=== PATIENT | female | born 1930 | race Caucasian/White ===

== ENCOUNTER 2016-10-13 08:00 | Outpatient (CLI) | payer MEDICARE, MEDICAID | END 2016-10-13 23:59 | DX: Z79.899 Other long term (current) drug therapy (principal); E03.9 Hypothyroidism, unspecified ==

== ENCOUNTER 2016-10-22 | Outpatient (CLI) | payer MEDICARE, MEDICAID | END 2016-10-22 10:41 | disposition critical access hospital (66) | CPT/HCPCS: A0425; A0427 ==

== ENCOUNTER 2016-10-22 11:18 | Emergency (ER) | payer MEDICARE, MEDICAID ==
[2016-10-22] MEDS ORDERED: ACETAMINOPHEN 325 MG TABLET PO STA (11:23)
[2016-10-22] MEDS ORDERED: ACETAMINOPHEN 325 MG TABLET PO ONE (11:26)
[2016-10-22] MEDS ORDERED: CEPHALEXIN 250 MG CAPSULE PO STA (13:52)
[2016-10-22] MEDS ORDERED: CEPHALEXIN 250 MG CAPSULE PO ONE (13:54)
== END 2016-10-22 17:00 | disposition home or self-care (01) ==
DX: S09.90XA Unspecified injury of head, initial encounter (principal); S00.03XA Contusion of scalp, initial encounter; M54.2 Cervicalgia; W01.198A Fall on same level from slipping, tripping and stumbling with subsequent striking against other object, initial encounter; Y92.009 Unspecified place in unspecified non-institutional (private) residence as the place of occurrence of the external cause; N30.01 Acute cystitis with hematuria; I48.91 Unspecified atrial fibrillation
CPT/HCPCS: 36415; 70450; 72125; 80048; 81001; 85025; 85610; 87077; 87086; 87181; 93005; 93010; 99284; A9270

== ENCOUNTER 2017-03-29 14:45 | Outpatient (CLI) | payer MEDICARE, MEDICAID ==
[2017-03-29 15:50] LABS: BILIRUBIN,URINE NEGATIVE (NEGATIVE); PH,URINE 6.5 PH (5.0-7.5); UA CHARGE (STRIP ONLY) YES; UR CULTURE IF IND NOT INDICATED
== END 2017-03-29 14:46 | disposition home or self-care (01) ==
LOC: LAB.R 14:45
PROVIDERS: ATTEND Internal Medicine
DX: R30.0 Dysuria (principal)
CPT/HCPCS: 81001; 81003; 87086

== ENCOUNTER 2017-06-02 13:00 | Outpatient (CLI) | payer MEDICARE, MEDICAID ==
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
== END 2017-06-02 13:01 | disposition home or self-care (01) ==
LOC: PC 13:00
PROVIDERS: ATTEND Nurse Practitioner Adult Health
DX: Z51.5 Encounter for palliative care (principal); F03.91 Unspecified dementia, unspecified severity, with behavioral disturbance; M54.9 Dorsalgia, unspecified; Z79.891 Long term (current) use of opiate analgesic; E03.9 Hypothyroidism, unspecified; F40.00 Agoraphobia, unspecified; R41.3 Other amnesia; I48.91 Unspecified atrial fibrillation; Z85.3 Personal history of malignant neoplasm of breast; I10 Essential (primary) hypertension; F32.9 Major depressive disorder, single episode, unspecified; G62.9 Polyneuropathy, unspecified; R44.0 Auditory hallucinations; R32 Unspecified urinary incontinence; R06.02 Shortness of breath; H54.7 Unspecified visual loss; M19.90 Unspecified osteoarthritis, unspecified site; Z90.10 Acquired absence of unspecified breast and nipple; R63.4 Abnormal weight loss; K59.00 Constipation, unspecified; I49.9 Cardiac arrhythmia, unspecified; Z66 Do not resuscitate
CPT/HCPCS: 99344

== ENCOUNTER 2017-10-29 10:58 | Outpatient (CLI) | payer MEDICARE, MEDICAID ==
--- NOTE | 2017-10-29 13:49 | CT Report ---
DATE OF SERVICE: 10/29/2017 CT BRAIN WITHOUT CONTRAST: CLINICAL INDICATION: Dementia. COMPARISON: 10/22/2016. TECHNIQUE: Axial CT images of the brain were obtained without intravenous contrast. FINDINGS: The ventricles and sulci again demonstrate moderate enlargement, compatible with atrophy. Periventricular chronic ischemic changes are stable. There is no evidence of acute hemorrhage, mass effect, or midline shift. The basilar cisterns remain patent. The visualized orbital contents and paranasal sinuses are unremarkable. IMPRESSION: STABLE ATROPHY AND CHRONIC ISCHEMIC CHANGES. NO EVIDENCE OF ACUTE HEMORRHAGE OR MASS EFFECT. In accordance with CT protocol optimization, one or more of the following dose reduction techniques were utilized for this exam: automated exposure control, adjustment of mA and/or KV based on patient size, or use of iterative reconstructive technique. TD: 10/29/2017 14:47
== END 2017-10-29 10:59 | disposition home or self-care (01) ==
LOC: DI 10:58
PROVIDERS: ATTEND Internal Medicine
DX: F03.90 Unspecified dementia, unspecified severity, without behavioral disturbance, psychotic disturbance, mood disturbance, and anxiety (principal); G31.9 Degenerative disease of nervous system, unspecified; I67.82 Cerebral ischemia
CPT/HCPCS: 70450

== ENCOUNTER 2017-11-01 13:36 | Outpatient (CLI) | payer MEDICARE, MEDICAID ==
[2017-11-01 18:54] LABS: THYROID STIMULATING HORMONE 3.57 uIU/mL (0.34-5.60)
== END 2017-11-01 13:37 | disposition home or self-care (01) ==
LOC: LAB.F 13:36
PROVIDERS: ATTEND Internal Medicine
DX: F03.90 Unspecified dementia, unspecified severity, without behavioral disturbance, psychotic disturbance, mood disturbance, and anxiety (principal)
CPT/HCPCS: 36415; 81599; 82607; 84443; 86592

== ENCOUNTER 2017-12-22 15:21 | Outpatient (CLI) | payer MEDICARE, MEDICAID ==
--- NOTE | 2017-12-23 10:12 | XRAY Report ---
TWO VIEW THORACIC SPINE: 12/22/2017 CLINICAL INDICATION: Thoracic pain. FINDINGS: Frontal and lateral views of the thoracic spine demonstrate normal height and alignment of the vertebral bodies. Anterior osseous fusion appears most compatible with ankylosing spondylitis. No compression fracture is seen. No paraspinal hematoma is appreciated. IMPRESSION: ANTERIOR OSSEOUS FUSION, SUGGESTIVE OF ANKYLOSING SPONDYLITIS. NO EVIDENCE OF FRACTURE. TD: 12/23/2017 10:11
== END 2017-12-22 15:22 | disposition home or self-care (01) ==
LOC: DI 15:21
PROVIDERS: ATTEND Nurse Practitioner Primary Care
DX: M54.6 Pain in thoracic spine (principal)
CPT/HCPCS: 72070

== ENCOUNTER 2017-12-27 21:57 | Outpatient (CLI) | payer MEDICARE, MEDICAID | END 2017-12-27 21:58 | disposition critical access hospital (66) | LOC: EMS 21:57 | PROVIDERS: ATTEND Surgery | DX: M79.642 Pain in left hand (principal); M79.672 Pain in left foot | CPT/HCPCS: A0425; A0429 ==

== ENCOUNTER 2017-12-27 22:37 | Emergency (ER) | payer MEDICARE, MEDICAID ==
--- NOTE | 2017-12-28 00:49 | XRAY Preliminary Report ---
Exam: XR WRIST 4 VIEW LT IMPRESSION: 1. No fracture or malalignment. 2. Marked first carpometacarpal joint arthritis. 3. Mild wrist swelling. [facility] SITE ID: [id number]
--- NOTE | 2017-12-28 00:53 | XRAY Preliminary Report ---
Exam: XR ANKLE 3 VIEW LT IMPRESSION: Left ankle: 1. Normal alignment. 2. No fracture. 3. Mild ankle swelling. Left foot: 1. Mildly displaced transverse fractures of the left third through fifth metatarsals with mild latera l angulation. 2. No dislocation. 3. Mild distal left foot swelling. [facility] SITE ID: [id number]
--- NOTE | 2017-12-28 00:53 | XRAY Preliminary Report ---
Exam: XR FOOT 3 VIEW LT IMPRESSION: Left ankle: 1. Normal alignment. 2. No fracture. 3. Mild ankle swelling. Left foot: 1. Mildly displaced transverse fractures of the left third through fifth metatarsals with mild latera l angulation. 2. No dislocation. 3. Mild distal left foot swelling. [facility] SITE ID: [id number]
--- NOTE | 2017-12-28 00:54 | XRAY Report ---
EXAM: LEFT WRIST RADIOGRAPHY EXAM DATE: 12/28/2017 12:25 AM. CLINICAL HISTORY: Left wrist pain. COMPARISON: None. TECHNIQUE: 3 views. FINDINGS: Bones: Normal. No fractures or bone lesions. Joints: Marked first carpometacarpal joint arthritis. Normal alignment. Soft Tissues: Mild wrist swelling. IMPRESSION: 1. No fracture or malalignment. 2. Marked first carpometacarpal joint arthritis. 3. Mild wrist swelling. [facility] Referring Provider Line: [phone] SITE ID: [id number]
--- NOTE | 2017-12-28 01:09 | XRAY Report ---
EXAMS: LEFT FOOT AND ANKLE RADIOGRAPHY EXAM DATE: 12/28/2017 12:26 AM. CLINICAL HISTORY: Twisted ankle. COMPARISON: None. TECHNIQUE: 3 views each foot and ankle. FINDINGS: Bones: Patient is osteopenic. No fractures involving the left ankle. Acute, mildly displaced transverse fractures of the left second through fifth metatarsal necks with m ild lateral angulation. Joints: Normal. No effusions. No subluxations in the foot or ankle. The ankle mortise is normally ali gned. Soft Tissues: Mild distal left foot swelling. Mild ankle swelling. IMPRESSION: Left Ankle: 1. Normal alignment. 2. No fracture. 3. Mild ankle swelling. Left Foot: 1. Mildly displaced transverse fractures of the left third through fifth metatarsals with mild latera l angulation. 2. No dislocation. 3. Mild distal left foot swelling. [facility] Referring Provider Line: [phone] SITE ID: [id number]
[2017-12-28 02:19] VITALS: BP 182/89
--- NOTE | 2017-12-28 02:32 | ED Physician Documentation ---
PD HPI LOWER EXT INJURY - Stated complaint Stated Complaint: GLF, LEFT FOOT AND LEFT HAND PAIN - Chief complaint Chief Complaint: Trauma Ext - History obtained from History obtained from: Patient, EMS - History of Present Illness PD HPI LOW EXT INJURY LOCATION: Left, Foot Type of injury: Fall, Twist Where injury occurred: Home Timing - onset: Today Timing - details: Abrupt onset Worsened by: Moving, Palpating Contributing factors: No: Anticoagulated, Prior ortho surgery Similar symptoms before: Has not had sx before Recently seen: Not recently seen - Additional information Additional information: Patient is an 87 year old female with a history of dementia who was brought in by ems for tripping on the carpet, twisting her ankle and causing foot pain. Daughter picked the patient up right after it happened. Patient is complaining of left foot pain and wrist pain but denies loc or any head trauma. Review of Systems Unable to obtain: Dementia PD PAST MEDICAL HISTORY - Past Medical History Cardiovascular: Hypertension, Atrial fibrillation Respiratory: Shortness of breath Neuro: Dementia Endocrine/Autoimmune: HyPOthyroidism GI: Other FRONT DESK OFFICER: Breast cancer : Incontinence HEENT: Chronic vision loss Psych: Depression Musculoskeletal: Osteoarthritis, Fatigue, Chronic back pain Derm: None - Past Surgical History /FRONT DESK OFFICER: Mastectomy - Present Medications Home Medications: Ambulatory Orders Medication Instructions Recorded Confirmed Diazepam [Valium] 5 - 10 mg PO DAILY PRN 05/29/13 06/02/17 Oxycodone HCl/Acetaminophen 1 each PO BID PRN 05/29/13 06/02/17 [Oxycodone-Acetaminophen 5-325] - Allergies Allergies/Adverse Reactions: Allergies Allergy/AdvReac Type Severity Reaction Status Date / Time benazepril HCl * Allergy Rash Unverified 12/27/17 22:45 [From Lotensin] dalteparin sodium,porcine * Allergy Rash Verified 12/27/17 22:45 [From Fragmin] enoxaparin sodium * Allergy Rash Verified 12/27/17 22:45 [From Lovenox] silicone [Silicone] Allergy Rash Unverified 12/27/17 22:45 acetaminophen [From Vicodin] AdvReac Nausea Unverified 12/27/17 22:45 codeine [Codeine] AdvReac Nausea Unverified 12/27/17 22:45 hydrocodone bitartrate * AdvReac Nausea Unverified 12/27/17 22:45 [From Vicodin] hydromorphone HCl * AdvReac Hallucinati Unverified 12/27/17 22:45 [From Dilaudid] ons - Social History Does the pt smoke?: No Smoking Status: Never smoker - POLST Patient has POLST: Yes PD ED PE NORMAL - Vitals Vital signs reviewed: Yes - General General: No acute distress - HEENT HEENT: Atraumatic, Moist mucous membranes, Dentition benign - Neck Neck: No bony TTP - Cardiac Cardiac: RRR - Respiratory Respiratory: No respiratory distress - Abdomen Abdomen: Soft, Non distended - Neuro Eye Opening: Spontaneous Motor: Obeys Commands PD ED PE EXPANDED - Extremities Extremities: Left wrist (ecchymosis of left wrist, minimal tenderness to palpation), Left ankle, Left foot (tenderness and swelling of left lateral foot) Results - Vitals Vitals: Vital Signs - 24 hr 12/27/17 12/28/17 22:42 02:19 Temperature 36.5 C Heart Rate 61 70 Respiratory 18 16 Rate Blood Pressure 156/88 H 182/89 H O2 Saturation 99 98 Oxygen O2 Source Room air - Rads (name of study) foot x-ray Radiology: Final report received (fractures of distal 5th, 4th and 3rd metatarsald), EMP read contemporaneously wrist Radiology: Final report received (no acute fracture or dislocation) PD MEDICAL DECISION MAKING - ED course Complexity details: reviewed old records, reviewed results, re-evaluated patient , considered differential, d/w patient, d/w family ED course: Patient was seen and examined at bedside. Imaging was ordered. When patient returned from imaging the results were reviewed. there were fractures in 3 of her metatarsals. Patient was placed in a walking boot. Family was made aware of the findings and follow up plan. Patient was stable for discharge with outpatient follow up. Departure - Departure Disposition: 01 Home, Self Care Clinical Impression: Metatarsal bone fracture Condition: Good Instructions: ED Boot Aircast Walker Follow-Up: Salbador Moore MD [Provider Admit Priv/Credential] - Tomorrow Comments: Your symptoms are being caused by mulitple fractures in your left foot. You should elevate your foot throughout the day and ice your foot at least 4-6 times a day. You can take tylenol as needed for pain and you should wear the boot for ambulation. You should follow up with the orthopedic doctor tomorrow to schedule a follow up appointment. You may return to the emergency department at any time for new worsening or uncontrollable symptoms.
== END 2017-12-28 03:15 | disposition home or self-care (01) ==
LOC: EDUNIT# → ED 22:37 → SUPCPDRO 22:37 → ED 12-28 03:15
DX: S92.352A Displaced fracture of fifth metatarsal bone, left foot, initial encounter for closed fracture (principal); S92.342A Displaced fracture of fourth metatarsal bone, left foot, initial encounter for closed fracture; S92.332A Displaced fracture of third metatarsal bone, left foot, initial encounter for closed fracture; S60.212A Contusion of left wrist, initial encounter; W18.09XA Striking against other object with subsequent fall, initial encounter; Y92.009 Unspecified place in unspecified non-institutional (private) residence as the place of occurrence of the external cause; M25.472 Effusion, left ankle; F03.90 Unspecified dementia, unspecified severity, without behavioral disturbance, psychotic disturbance, mood disturbance, and anxiety; E03.9 Hypothyroidism, unspecified; I10 Essential (primary) hypertension; Z85.3 Personal history of malignant neoplasm of breast; Z90.10 Acquired absence of unspecified breast and nipple
CPT/HCPCS: 99283